=== PATIENT | female | born 2000 | race Caucasian/White ===

== ENCOUNTER 2018-02-05 00:42 | Emergency (ER) | payer OTHER ==
[~2018-02-05] VITALS: Ht 167.6 cm; Wt 54.4 kg
[2018-02-05 01:00] VITALS: Ht 167.6 cm; Wt 54.4 kg
[2018-02-05 02:32] VITALS: BP 99/56
== END 2018-02-05 02:32 | disposition home or self-care (01) ==
LOC: ED 00:42
DX: F10.129 Alcohol abuse with intoxication, unspecified (principal)
CPT/HCPCS: J2405; J3490; J7030